=== PATIENT | male | born 1950 | race Caucasian/White ===

== ENCOUNTER → 2018-05-19 | Outpatient (CLI) | payer MEDICARE, OTHER ==
[2016-05-11 14:25] VITALS: BP 139/81
[~2018-05-19] MED LIST: ALLO100T; ALLO100T PO; CEFT1FRO2 IV; CELE200C PO; CHLO118L2 TP; CIPR500T94 PO; CLIN300C8 PO; DOCU100C28 PO; DOXY100T; DULO60CA44 PO; FERR325T14 PO; FERR325T58 PO; HYDR-2680 PO; HYDR-2766 PO; HYDR200T5 PO; HYDR200T71 PO; HYDR25PO2 MC; HYDR25SU18 RC; IRON1TAB29 PO; L. R1CAP2 PO; LATA2.5D3 OP; MULT1TAB52 PO; MUPI1OIN NS; OMEP20CA9 PO; OXYC-328 PO; OXYC-411 PO; Oxycodone Hcl/Acetaminophen PO; POLY119P4 PO; SULF1TAB24 PO; TAMS0.4C2 PO; TRAM50TA PO; VANC750V2 IJ; WARF-78 PO; WARF4TAB68 PO; Warfarin Sodium MC; ZOLP12.54
--- NOTE | 2018-05-19 12:50 | KCIC ---
MR of the left shoulder Indication: Left shoulder pain. Swelling for 6 months. Possible proximal biceps tendon injury. Technique: Standard multiplanar sequences are obtained. Findings: Artifact: Moderate motion degradation. Acromioclavicular joint: Mildly degenerative with small undersurface osteophytes. Rotator cuff: * Supraspinatus-infraspinatus tendon: Tendinosis signal. Diffuse partial undersurface tearing. More focal deep partial tear of the anterior supraspinatus tendon, at both the undersurface and bursal surface, resulting in only a very thin tendon remnant which measures about 1 mm in thickness. This measures 1 cm at least in AP diameter. * Subscapularis tendon: Tendinosis without high-grade tear. * Muscle bulk: Mild atrophy * Subacromial subdeltoid bursa: Moderate effusion. Fluid: No significant glenohumeral effusion. Glenohumeral cartilage: No acute defect or advanced DJD. Labrum: Small blunted superior labrum, compatible with degenerative tear, unless there has been prior surgical intervention here. Biceps tendon: Poorly seen, particularly intra-articular aspect. Bones: No lesion or acute fracture. Soft tissue: No acute findings. Impression: 1. Rotator cuff tendinosis. There is a broad partial thickness undersurface tear of the supraspinatus and infraspinatus tendon, with a more focal component of very deep bursal and articular side tearing at the supraspinatus. Moderate subdeltoid bursal effusion/bursitis. 2. Blunted superior labrum compatible with a tear, unless there has been prior surgical intervention. 3. Poorly seen biceps tendon, suspect proximal tear. Electronically signed by: Ravindra Jeffrey MD (05/19/2018 12:47 PM) [id number]
== END | disposition home or self-care (01) ==
LOC: KCIC MRI 08:22
PROVIDERS: ATTEND Orthopaedic Surgery
DX: M75.112 Incomplete rotator cuff tear or rupture of left shoulder, not specified as traumatic (principal); M75.102 Unspecified rotator cuff tear or rupture of left shoulder, not specified as traumatic; M62.512 Muscle wasting and atrophy, not elsewhere classified, left shoulder; K21.9 Gastro-esophageal reflux disease without esophagitis; D63.8 Anemia in other chronic diseases classified elsewhere; Z96.652 Presence of left artificial knee joint; Z86.14 Personal history of Methicillin resistant Staphylococcus aureus infection; Z82.49 Family history of ischemic heart disease and other diseases of the circulatory system; Z80.8 Family history of malignant neoplasm of other organs or systems; Z80.3 Family history of malignant neoplasm of breast; Z83.3 Family history of diabetes mellitus
CPT/HCPCS: 73221